=== PATIENT | male | born 1950 | race American Indian/Alaskan Native ===

== ENCOUNTER 2020-10-19 08:16 | Outpatient (CLI) | payer MEDICARE ==
--- NOTE | 2020-10-19 10:15 | XRay Report ---
RIGHT FOOT 3 VIEWS INDICATION / CLINICAL INFORMATION: Right foot pain and swelling following syncope. COMPARISON: None available. FINDINGS: BONES / JOINT(S): There is an acute, mildly comminuted fracture of the distal second metatarsal at th e metaphyseal diaphyseal junction, best seen laterally. There is also a longitudinal component of the fracture which extends proximally into the distal shaft. There is moderate hallux valgus. There are mild degenerative changes involving the first metatarsoph alangeal joint. There is a moderate plantar calcaneal spur. There is also a small spur at the inserti on of the Achilles tendon on the calcaneus. There are mild degenerative changes involving the dorsum of the midfoot. SOFT TISSUES: No significant abnormality. ADDITIONAL FINDINGS: None. IMPRESSION: Acute, mildly comminuted fracture of the distal shaft and distal metaphyseal diaphyseal j unction of the second metatarsal. Signer Name: rFansico Peguero MD Signed: 10/19/2020 10:10 AM Workstation Name: [id number]
== END 2020-10-19 08:17 | disposition home or self-care (01) ==
LOC: SPVIMAG 08:16
PROVIDERS: ATTEND Internal Medicine Hematology
DX: S92.811A Other fracture of right foot, initial encounter for closed fracture (principal); C18.9 Malignant neoplasm of colon, unspecified; T45.1X5A Adverse effect of antineoplastic and immunosuppressive drugs, initial encounter; M79.89 Other specified soft tissue disorders; M19.071 Primary osteoarthritis, right ankle and foot; M20.11 Hallux valgus (acquired), right foot; M77.31 Calcaneal spur, right foot; X58.XXXA Exposure to other specified factors, initial encounter; Y93.89 Activity, other specified; Y92.89 Other specified places as the place of occurrence of the external cause; Y99.8 Other external cause status